=== PATIENT | male | born 1970 | race Caucasian/White ===

== ENCOUNTER 2020-08-23 03:13 | Emergency (ER) | payer MEDICAID ==
[~2020-08-23] VITALS: Ht 172.7 cm; Wt 100.0 kg
[2020-08-23 07:57] VITALS: BP 129/65
== END 2020-08-23 08:02 | disposition home or self-care (01) ==
LOC: ER 03:13
DX: R07.89 Other chest pain (principal)
CPT/HCPCS: 71045; 93005; 99283